=== PATIENT | male | born 1955 | race Caucasian/White ===

== ENCOUNTER → 2021-08-31 | Outpatient (CLI) | payer MEDICARE | END | disposition home or self-care (01) | LOC: CARD DIAG 09:21 | PROVIDERS: ATTEND Nurse Practitioner | DX: I34.8 Other nonrheumatic mitral valve disorders (principal); Z82.49 Family history of ischemic heart disease and other diseases of the circulatory system | CPT/HCPCS: 93306 ==

== ENCOUNTER 2024-04-22 09:25 | Day surgery (SDC) | payer MEDICARE ==
[2024-04-18 08:40] LABS: ALBUMIN 3.5 G/DL (3.4-5.0); ANION GAP 7 (8-16); BLOOD UREA NITROGEN 18 MG/DL (7-18); BUN/CREATININE RATIO 18.9 (10.0-20.0); CALCIUM 8.7 MG/DL (8.5-10.1); CHLORIDE 106 MMOL/L (99-107); CREATININE 0.95 MG/DL (0.60-1.10); GLUCOSE 145 MG/DL (70-104); POTASSIUM 4.5 MMOL/L (3.5-5.1); SODIUM 140 MMOL/L (135-145); TOTAL CARBON DIOXIDE 26.9 MMOL/L (24-32); eGFR 78 ML/MIN
[2024-04-18 08:43] LABS: APTT 30 SECONDS (22-32); INR 1.1 INR; PROTHROMBIN TIME 11.8 SECONDS (9.0-12.0)
[2024-04-18 08:54] LABS: BASOPHILS % (AUTO) 0.4 % (0-1); EOSINOPHILS # (AUTO) 0.2 X10'3 (0-0.9); EOSINOPHILS % (AUTO) 2.7 % (0-6); HEMATOCRIT 43.6 % (42.0-52.0); HEMOGLOBIN 14.3 g/dl (14.0-17.9); LYMPHOCYTES # (AUTO) 2.1 X10'3 (1.1-4.8); LYMPHOCYTES % (AUTO) 32.3 % (21-51); MEAN CORPUSCULAR HEMOGLOBIN 28.9 PG (27.0-31.0); MEAN CORPUSCULAR HGB CONC 32.8 g/dL (33.0-36.5); MEAN CORPUSCULAR VOLUME 88.1 FL (78-98); MEAN PLATELET VOLUME 9.6 FL (7.4-10.4); MONOCYTES # (AUTO) 0.4 X10'3 (0-0.9); MONOCYTES % (AUTO) 6.2 % (2-12); NEUTROPHILS # (AUTO) 3.7 X10'3 (1.8-7.7); NEUTROPHILS % (AUTO) 58.4 % (42-75); PLATELET COUNT 164 X10'3 (140-440); RED BLOOD COUNT 4.95 X10'6 (4.70-6.10); RED CELL DISTRIBUTION WIDTH 14.1 % (11.5-14.5); WHITE BLOOD COUNT 6.4 X10'3 (4.5-11.0)
[2024-04-22] VITALS (11 sets, daily range): BP systolic 100–153; BP diastolic 65–93; PULSE 72–93; RESP 16; TEMP 97.8; O2SAT 94–98
[~2024-04-22] VITALS: Ht 162.6 cm; Wt 117.3 kg
[2024-04-22] MEDS ORDERED: normal saline 1000ml 1,000 ML IV SCH (09:55)
[2024-04-22] MEDS ORDERED: PIOG30TA71 PO (10:27)
[2024-04-22] MEDS ORDERED: AMLO5TAB16 PO (10:27)
[2024-04-22] MEDS ORDERED: APIX5TAB3 PO (10:27)
[2024-04-22] MEDS ORDERED: INSU200I4 SQ (10:27)
[2024-04-22] MEDS ORDERED: TERA10CA4 PO (10:27)
[2024-04-22] MEDS ORDERED: ROSU20TA73 PO (10:27)
[2024-04-22] MEDS ORDERED: SOTA80TA PO (10:27)
[2024-04-22] MEDS ORDERED: CHOL50004 PO (10:27)
[2024-04-22] MEDS ORDERED: LOSA100T58 PO (10:27)
[2024-04-22] MEDS ORDERED: GLIM4TAB7 PO (10:27)
[2024-04-22] MEDS ORDERED: LORA10TA7 PO (10:27)
[2024-04-22] MEDS ORDERED: PANT40TA54 PO (10:27)
[2024-04-22 11:17] LABS: CHOL/HDL RATIO 2.4 (0.00-4.99); CHOLESTEROL 95 MG/DL (0-200); HDL CHOLESTEROL 39 MG/DL (35-60); LDL CHOLESTEROL 49 MG/DL (50-100); TRIGLYCERIDES 61 MG/DL (20-135)
[2024-04-22] MEDS: MIDAZolam 1mg/ml 10ml vial IV ONE (13:39)
[2024-04-22] MEDS: fentaNYL/PF 50MCG/1 ML 2ML syringe IV ONE (13:39)
[2024-04-22] MEDS: normal saline 1000ml 1,000 ML IV SCH (13:40)
== END 2024-04-22 13:50 | disposition home or self-care (01) ==
LOC: SSTAY O 09:25
PROVIDERS: ATTEND Student in an Organized Health Care Education/Training Program
DX: I48.91 Unspecified atrial fibrillation (principal); I10 Essential (primary) hypertension; E11.9 Type 2 diabetes mellitus without complications; E66.01 Morbid (severe) obesity due to excess calories; E78.00 Pure hypercholesterolemia, unspecified; K21.9 Gastro-esophageal reflux disease without esophagitis; G47.33 Obstructive sleep apnea (adult) (pediatric); Z79.01 Long term (current) use of anticoagulants; Z79.899 Other long term (current) drug therapy
CPT/HCPCS: 36415; 80048; 80061; 82948; 85025; 85610; 85730; 92960; J2250; J3010; J7030; Z7610